=== PATIENT | male | born 1950 | race Caucasian/White ===

== ENCOUNTER → 2016-12-01 | Outpatient (CLI) | payer OTHER ==
[~2016-12-01] MED LIST: REGADENOSON 0.4 MG/5 ML DISP.SYRIN. IV ONE
--- NOTE | 2016-12-01 10:52 | PCVCIMAG ---
APPROVED REPORT Exam: Nuclear Stress Test Indication: Chest pain (Angina), Cardiomyopathy Patient Location: Out-Patient Stress Nurse: nAgela Liang RN, Maddie Olguin RN [place] Tech:Esther PicketthbunZAN Ht: 6 ft 3 in Wt: 220 lbs BSA: 2.29 m2 HR: 55 bpm BP: 161/91 mmHg BMI: 27.4 Rhythm: NSR, Sinus Bradycardia Medical History Medical History: HTN, Hyperlipidemia, CAD Medications: HCTZ, zetia, valsartan, atorvastatin, metoprolol, pramiprole Allergies: Codeine, KASI Inhibitors Cardiac Risk Factors: Age Pretest Chest Pain Characteristics: No chest pain Physical Disabilities: Knees Meds Held (24 hrs): Metoprolol Stress Test Details Stress Test: Pharmacologic stress was paired with low level exercise. Reason for pharmacologic stress test: physical limitation. HR Resting HR: 55 bpmMax Heart Rate (APMHR): 156 bpm Max HR Achieved: 108 bpmTarget HR (85% APMHR): 132 bpm % of APMHR: 69 Recovery HR: 60 bpm BP Resting BP: 161/91 mmHg Max BP: 150/80 mmHg Recovery BP: 155/89 mmHg ECG Resting ECG: Sinus kimi/Sinus Rhythm Stress ECG: Sinus Tachycardia ST Change: Non-ischemic Recovery ECG: Sinus Rhythm Clinical Reason for Termination: Completed protocol Stress Symptoms: Dyspnea Exercise duration: 4 min 00 sec Exercise capacity: 1.6 METs Symptoms resolved during recovery. NM EXAM: Myocardial Perfusion REST/STRESS Imaging Protocol: Rest Tc-99m/Stress Tc-99m 1 day Resting Data Rest SPECT myocardial perfusion imaging was performed in supine position 45 minutes following the intravenous injection of 31.4 mCi of Tc-99m Sestamibi. Time of rest injection: 739 Date: 12/01/2016 Pharmacologic Stress Pharmacologic stress test was performed by injecting Regadenoson 0.4 mg IV push followed by the intravenous injection of 34.7 mCi of Tc-99m Sestamibi. Time of stress injection: 849 Date: 12/01/2016 Administration Route: IV Administration Site: Right AC Gated Stress SPECT was performed 45 minutes after stress injection. The images were gated to evaluate regional wall motion and calculate left ventricular ejection fraction. Study Quality Study: Good Artifact: Mild Soft tissue attenuation artifact Study Data Post stress, the left ventricular ejection was 74%.. SSS: 3 SRS: 7 SDS: 0 TID = 1.08. Perfusion There is a small area of mildly reduced uptake in the apical segment which is seen on the stress images as well as the resting images. This area thickens and moves normally and is most consistent with attenuation artifact. Wall Motion Normal left ventricular wall motion. Clinical Findings: Nondiagnostic EKG Findings: Nonischemic Nuclear Conclusion This study is of low probability for inducible ischemia or prior infarct. Normal global and segmental LV systolic function.
== END | disposition home or self-care (01) ==
LOC: PCVCIMAG 07:07
PROVIDERS: ATTEND Internal Medicine Cardiovascular Disease
DX: I25.10 Atherosclerotic heart disease of native coronary artery without angina pectoris (principal); I10 Essential (primary) hypertension; E78.00 Pure hypercholesterolemia, unspecified; I42.9 Cardiomyopathy, unspecified; R00.1 Bradycardia, unspecified; E78.5 Hyperlipidemia, unspecified; Z87.891 Personal history of nicotine dependence; Z88.5 Allergy status to narcotic agent
CPT/HCPCS: 78452; 93017; A9500; G0463; J2785

== ENCOUNTER → 2018-10-04 | Outpatient (CLI) | payer MEDICARE, OTHER ==
--- NOTE | 2018-10-04 09:35 | PCVCIMAG ---
APPROVED REPORT Study performed: 10/04/2018 08:02:58 EXAM: Comprehensive 2D, Doppler, and color-flow Echocardiogram Patient Location: Echo lab Status: routine BSA: 2.24 HR: 49 bpmBP: 140/100 mmHg Rhythm: NSR Other Information Study Quality: Adequate Risk Factors: Cardiac Risk Factors: HTN, Hyperlipidemia Indications Cardiomyopathy Ascending Aortic Aneurysm 2D Dimensions IVSd: 13.81 (7-11mm)LVOT Diam: 23.92 (18-24mm) LVDd: 38.64 mm PWd: 9.32 (7-11mm)Ascending Ao: 45.22 (22-36mm) LVDs: 19.43 (25-40mm) Left Atrium: 37.66 (27-40mm) Aortic Root: 36.70 mm LV Single Plane 4CH: 60.21 % LV Single Plane 2CH: 62.31 % Biplane EF: 59.7 % Volumes Left Atrial Volume (Systole) Single Plane 4CH: 65.67 mLSingle Plane 2CH: 78.01 mL LA ESV Index: 33.00 mL/m2 Aortic Valve AoV Peak Matthew.: 1.72 m/s AO Peak Gr.: 11.77 mmHgLVOT Max P.40 mmHg LVOT Max V: 1.16 m/s JUAN Vmax: 3.04 cm2 Mitral Valve E/A Ratio: 0.8 MV Decel. Time: 348.22 ms MV E Max Matthew.: 0.71 m/s MV A Matthew.: 0.92 m/s IVRT: 138.41 ms TDI E/Lateral E': 7.10E/Medial E': 11.83 Medial E' Matthew.: 0.06 m/s Lateral E' Matthew.: 0.10 m/s Pulmonary Valve PV Peak Gr.: 1.62 mmHg Left Ventricle The left ventricle is normal size. There is normal LV segmental wall motion. There is normal left ventricular wall thickness. Left ventricular systolic function is normal. The left ventricular ejection fraction is within the normal range. LVEF is >55%. Grade I - abnormal relaxation pattern. Right Ventricle The right ventricle is normal size. The right ventricular systolic function is normal. Atria The left atrium size is normal. The right atrium size is normal. Aortic Valve The aortic valve is normal in structure. No aortic regurgitation is present. There is no aortic valvular stenosis. Mitral Valve The mitral valve is normal in structure. Trace mitral regurgitation. No evidence of mitral valve stenosis. Tricuspid Valve The tricuspid valve is normal in structure. Trace tricuspid regurgitation. Pulmonic Valve The pulmonary valve is normal in structure. There is no pulmonic valvular regurgitation. Great Vessels The aortic root is normal in size. The ascending aorta is dilated measuring 4.6 cm. IVC is normal in size and collapses >50% with inspiration. Pericardium There is no pericardial effusion. <Conclusion> The left ventricle is normal size. There is normal left ventricular wall thickness. Left ventricular systolic function is normal. Grade I - abnormal relaxation pattern. The right ventricle is normal size. The left atrium size is normal. The aortic valve is normal in structure. Trace mitral regurgitation. Trace tricuspid regurgitation. The ascending aorta is dilated measuring 4.6 cm.
== END | disposition home or self-care (01) ==
LOC: PCVCIMAG 07:40
PROVIDERS: ATTEND Internal Medicine Cardiovascular Disease
DX: I25.10 Atherosclerotic heart disease of native coronary artery without angina pectoris (principal); I10 Essential (primary) hypertension; E78.00 Pure hypercholesterolemia, unspecified; I71.2 Thoracic aortic aneurysm, without rupture; Z87.891 Personal history of nicotine dependence
CPT/HCPCS: 93005; 93306; G0463